=== PATIENT | female | born 1970 | race Two or more races ===

== ENCOUNTER 2021-09-30 19:39 | Emergency (ER) | payer MEDICAID ==
[~2021-09-30] VITALS: Ht 152.4 cm; Wt 66.7 kg
[2021-09-30] MEDS ORDERED: methylPREDNISolone SOD SUCC 125 MG/2ML VIAL ONE ×2 (20:25→20:31)
[2021-09-30] MEDS ORDERED: Magnesium 1GM/D5W 100ML PREMIX 100 ML IV ONE ×2 (20:27→20:44)
[2021-09-30] MEDS ORDERED: IPRATROPIUM NEB FS 0.5 MG/2.5 ML AMPUL.NEB ONE (20:30)
[2021-09-30] MEDS ORDERED: Magnesium 1GM/D5W 100ML PREMIX 200 ML IV ONE (20:30)
[2021-09-30] MEDS ORDERED: methylPREDNISolone SOD SUCC 125 MG/2ML VIAL IV ONE (20:30)
[2021-09-30] MEDS ORDERED: IV NS 0.9% 1,000 ML BAG IV ONE (20:30)
[2021-09-30] MEDS ORDERED: ALBUTEROL FS 2.5 MG/3 ML VIAL.NEB ONE (20:30)
[2021-09-30] MEDS ORDERED: IPRATROPIUM NEB FS 0.5 MG/2.5 ML AMPUL.NEB NEB ONE (20:30)
[2021-09-30] MEDS ORDERED: ALBUTEROL FS 2.5 MG/3 ML VIAL.NEB NEB ONE (20:30)
--- NOTE | 2021-09-30 20:35 | NUR ---
Received a 51 year old female with complaints of SOB x 3 days. Per patient, she has history of asthma and ran out of inhaler.
--- NOTE | 2021-09-30 20:40 | NUR ---
Established right forearm 20G PIV with good blood return.
[2021-09-30] MEDS ORDERED: PRED50TA PO (21:00)
[2021-09-30] MEDS ORDERED: ALBU18HF2 INH (21:00)
--- NOTE | 2021-09-30 21:46 | NUR ---
IV removed. Catheter intact and site benign. Pressure and 4x4 applied to site. No bleeding noted.Patient discharged to home in stable condition. Written and verbal after care instructions given. Patient verbalizes understanding of instruction.
[2021-09-30 21:47] VITALS: BP 145/90
== END 2021-09-30 21:47 | disposition home or self-care (01) ==
LOC: ER 19:47
DX: J45.901 Unspecified asthma with (acute) exacerbation (principal); I10 Essential (primary) hypertension; Z88.0 Allergy status to penicillin; Z60.2 Problems related to living alone; Z79.899 Other long term (current) drug therapy
CPT/HCPCS: 99284; 96365; 96375; 93005; 94640; J2930 ×2; J3475 ×2

== ENCOUNTER 2021-12-24 13:13 | Emergency (ER) | payer MEDICAID ==
[~2021-12-24] VITALS: Ht 152.4 cm; Wt 65.8 kg
[~2021-12-24 13:13] MED LIST: ALBU18HF2 INH; PRED50TA PO
--- NOTE | 2021-12-24 13:41 | NUR ---
BIBS W/ C/O R KNEE AREA PAIN AND SWELLING X 1 WEEK, NO RECENT TRAUMA ENDORSED . TO ER BED 9.
[2021-12-24] MEDS ORDERED: NAPR-1192 PO (15:39)
--- NOTE | 2021-12-24 16:28 | NUR ---
Patient discharged to home in stable condition. Written and verbal after care instructions given. Patient verbalizes understanding of instruction.
[2021-12-24 16:29] VITALS: BP 130/90
== END 2021-12-24 16:29 | disposition home or self-care (01) ==
LOC: ER 13:16
DX: M25.561 Pain in right knee (principal); I10 Essential (primary) hypertension; J45.909 Unspecified asthma, uncomplicated; Z88.0 Allergy status to penicillin; Z60.2 Problems related to living alone; Z79.899 Other long term (current) drug therapy
CPT/HCPCS: 73564-TC

== ENCOUNTER 2022-08-12 12:55 | Emergency (ER) | payer MEDICAID ==
[~2022-08-12] VITALS: Ht 152.4 cm; Wt 68.0 kg
[~2022-08-12 12:55] MED LIST changes: +NAPR-1192 PO
--- NOTE | 2022-08-12 12:58 | NUR ---
TO ER BED 4. BIBS C/O RECTAL PAIN AND LOWER LEFT QUADRANT ABOMINAL PAIN THAT STARTED 2 DAYS AGO, PAIN 7/10. PLACED IN GOWN. AWAITING MD ARREOLA.
--- NOTE | 2022-08-12 13:06 | NUR ---
URINE COLLECTED AND SENT
[2022-08-12] MEDS ORDERED: KETOROLAC TROMETHAMINE 15 MG/ML VIAL ONE (13:21)
[2022-08-12] MEDS ORDERED: KETOROLAC TROMETHAMINE INJ 30 MG/ML VIAL IV ONE (13:30)
[2022-08-12] MEDS ORDERED: IV NS 0.9% 1,000 ML BAG IV ONE (13:30)
--- NOTE | 2022-08-12 13:30 | NUR ---
IV ESTABLISHED R AC 20G. LABS DRAWN AND SENT.
--- NOTE | 2022-08-12 13:32 | NUR ---
Maricarmen mason in ED - 08/12/22 at 1333 by NATALIE IV ESTABLISHED L AC 20G. LABS DRAWN AND SENT.
[2022-08-12 13:56] LABS: BILIRUBIN,URINE 1+ (NEGATIVE); COLOR,URINE DARK YELLOW (YELLOW); LEUKOCYTE ESTERASE ,URINE NEGATIVE (NEGATIVE); NITRITE, URINE NEGATIVE (NEGATIVE); PROTEIN,URINE 1+ mg/dl (NEGATIVE); UGLUCOSE NEGATIVE (NEGATIVE)
[2022-08-12 13:59] LABS: BACTERIA,URINE Rare /HPF (None Seen); SQUAMOUS EPITHELIAL CELL,UR Few /HPF (None Seen); WBC,URINE 0-2 /HPF (0-3)
[2022-08-12 14:17] LABS: BASOPHILS % (AUTO) 0.4 % (0.0-2.0); EOSINOPHILS % (AUTO) 0.5 % (0.0-6.0); HEMATOCRIT 38 % (33-45); HEMOGLOBIN 12.5 g/dL (11.5-14.8); LYMPHOCYTES # (AUTO) 1.4 K/uL (0.8-4.8); LYMPHOCYTES % (AUTO) 13.1 % (20.0-44.0); MEAN CORPUSCULAR HGB CONC 33 g/dl (31.0-36.0); MEAN CORPUSCULAR VOLUME 85 fL (82-100); MONOCYTES # (AUTO) 0.9 K/uL (0.1-1.30); MONOCYTES % (AUTO) 8.5 % (2.0-12.0); NEUTROPHILS # (AUTO) 8.5 K/uL (1.8-8.9); NEUTROPHILS % (AUTO) 77.5 % (43.0-81.0); PLATELET COUNT (AUTO) 304 K/uL (150-450); RED BLOOD CELL COUNT(AUTO) 4.45 MIL/uL (4.0-5.2); WHITE BLOOD COUNT (AUTO) 10.9 K/uL (4.3-11.0)
[2022-08-12 14:30] LABS: CALCIUM, SERUM 8.9 mg/dL (8.5-10.1); CREATININE 0.7 mg/dL (0.6-1.3); POTASSIUM 3.6 mmol/L (3.5-5.1)
[2022-08-12 14:35] LABS: BILIRUBIN,DIRECT 0.2 mg/dL (0.0-0.2); BILIRUBIN,TOTAL 0.6 mg/dL (0.2-1.0); TOTAL PROTEIN, SERUM 6.9 g/dL (6.4-8.2)
[2022-08-12] MEDS ORDERED: CT SWABBABLE VALVE TRANS SET 1 EA INFUS.SET MC ONE (14:43)
[2022-08-12] MEDS ORDERED: IV NS 0.9% 250 ML IV ONE (14:43)
[2022-08-12] MEDS ORDERED: IOHEXOL-300 100 ML VIAL IV ONE (14:43)
[2022-08-12] MEDS ORDERED: METR-147 PO (15:31)
[2022-08-12] MEDS ORDERED: KETO10TA2 PO (15:31)
[2022-08-12] MEDS ORDERED: CIPR500T5 PO (15:31)
[2022-08-12 15:37] VITALS: BP 125/72; TEMP 98.2
== END 2022-08-12 15:37 | disposition home or self-care (01) ==
LOC: ER 12:59
DX: K57.32 Diverticulitis of large intestine without perforation or abscess without bleeding (principal); R10.32 Left lower quadrant pain; I10 Essential (primary) hypertension; J45.909 Unspecified asthma, uncomplicated; Z88.0 Allergy status to penicillin; Z60.2 Problems related to living alone; Z79.899 Other long term (current) drug therapy
CPT/HCPCS: 99285; 74177; 96374; 96361; 85025; 80048; 83690; 80076; 81001; 36415; J7030; J7050; Q9967; J1885

== ENCOUNTER 2024-01-18 11:44 | Emergency (ER) | payer MEDICAID ==
[~2024-01-18] VITALS: Ht 152.4 cm; Wt 68.0 kg
[~2024-01-18 11:44] MED LIST changes: +CIPR500T5 PO; +KETO10TA2 PO; +METR-147 PO
[2024-01-18 12:12] VITALS: BP 157/98; TEMP 98.2
[2024-01-18] MEDS ORDERED: HYDROCODONE/APAP 5/325MG TABLET ONE (12:35)
[2024-01-18] MEDS: HYDROCODONE/APAP 5/325MG TABLET PO ONE (12:37)
[2024-01-18] MEDS ORDERED: IBUP-1953 PO (13:45)
[2024-01-18 13:50] VITALS: O2SAT 98
== END 2024-01-18 13:52 | disposition home or self-care (01) ==
LOC: ER 11:45
DX: M77.9 Enthesopathy, unspecified (principal); J45.909 Unspecified asthma, uncomplicated; I10 Essential (primary) hypertension; Z88.0 Allergy status to penicillin; Z79.52 Long term (current) use of systemic steroids
CPT/HCPCS: 73030-TC; 73060-TC